=== PATIENT | female | born 1950 | race Caucasian/White ===

== ENCOUNTER → 2021-01-02 | Outpatient (CLI) | payer MEDICARE ==
[~2021-01-02] MED LIST: IBAN150T20 PO; albuterol INH; allegra; calcium PO; multivitamin PO
== END ==
LOC: LAB 14:36
PROVIDERS: ATTEND Internal Medicine Gastroenterology
DX: Z01.812 Encounter for preprocedural laboratory examination (principal); Z13.89 Encounter for screening for other disorder; Z13.6 Encounter for screening for cardiovascular disorders; Z20.822 Contact with and (suspected) exposure to COVID-19
CPT/HCPCS: U0003

== ENCOUNTER → 2021-01-05 | Day surgery (SDC) | payer MEDICARE ==
[~2021-01-05] MED LIST changes: +IPRATRPIUM/ALBUTEROL 0.5/2.5MG 3 ML NEBU. NEB PRN; +IV RINGERS SOLUTION,LACTATED 1,000 ML IV SCH; +LIDOCAINE 2% PF 5 ML VIAL. ONE; +MIDAZOLAM HCL PF 2 MG/2 ML VIAL. IV ONE; +ONDANSETRON PF 4 MG/2 ML VIAL. IV PRN; +PROPOFOL 10,000 MCG/ML (20ML) VIAL IV ONE
[2021-01-05 12:55] VITALS: BP 104/65
--- NOTE | 2021-01-09 15:08 | PATHOLOGY ---
[facility] Accession Number: [id number] . 01 Material submitted: . ANTRUM - ANTRUM GASTRITIS BX . 01 Clinical history: . DYSPHAGIA/SCREENING EGD/COLONOSCOPY . 02 Diagnosis: Gastric biopsy, antrum: - Chronic gastritis, mild. (JPM:[facility] 01/09/2021) [facility] 01/09/2021 1022 Local . 02 Comment: Sections of the gastric antral biopsy show congestion and mild chronic inflammation. A properly controlled immunoperoxidase stain for Helicobacter is negative for Helicobacter organisms. (JPM:[facility] 01/09/2021) . Special stain performed: Immunoperoxidase stain for Helicobacter . 02 Electronically signed: . Sravan Brantley MD, Pathologist NPI- [id number] . 01 Gross description: . The specimen is received in formalin, labeled "Nivia Caputo, antrum gastritis BX". It consists of 2 mckenzie irregular soft tissue fragments measuring 0.4 and 0.5 cm. The specimen is entirely submitted between sponges in A1. (MRF; 01/08/2021) [facility] 01/08/2021 1702 Local . 02 Pathologist provided ICD-10: K29.50 . 02 CPT . 608850, [id number] Specimen Comment: A courtesy copy of this report has been sent to [phone], [phone] Specimen Comment: [id number] Specimen Comment: Report sent to / DR OAKLEY Performed at: 01 [facility] [address], [place] [id number] MD Hemal Parker MD Phone: [phone] Performed at: 02 [facility] [id number] MD Sravan Brantley MD Phone: [phone]
== END | disposition home or self-care (01) ==
LOC: SURG 09:58
PROVIDERS: ATTEND Internal Medicine Gastroenterology
DX: Z12.11 Encounter for screening for malignant neoplasm of colon (principal); K57.30 Diverticulosis of large intestine without perforation or abscess without bleeding; K64.8 Other hemorrhoids; K64.4 Residual hemorrhoidal skin tags; K29.50 Unspecified chronic gastritis without bleeding; R13.10 Dysphagia, unspecified; K22.2 Esophageal obstruction; R12 Heartburn; K44.9 Diaphragmatic hernia without obstruction or gangrene; K21.9 Gastro-esophageal reflux disease without esophagitis; J45.909 Unspecified asthma, uncomplicated; Z98.890 Other specified postprocedural states; Z79.899 Other long term (current) drug therapy; Z88.0 Allergy status to penicillin
CPT/HCPCS: 43239; 43450; 88305; 88342; G0121; J2001; J2704; J7120; 43249; 45378